=== PATIENT | female | born 1980 | race American Indian/Alaskan Native ===

== ENCOUNTER 2016-06-03 06:02 | Emergency (ER) | payer SELFPAY ==
[2016-06-03] MEDS ORDERED: TORADOL IM ONE (08:32)
--- NOTE | 2016-06-03 08:39 | Emergency Department Report ---
HPI - General Chief Complaint: Dental/Oral Time Seen by Provider: 06/03/16 08:22 - HPI HPI: Patient is a 35-year-old female presents to the ED complaining of right sided lower dental pain 2 days. Patient states last dental visit was 6 months ago. Patient takes no recent dental work. Patient states pain as throbbing/aching type pain at the right bottom jaw area. Patient denies fevers/chills/nausea/vomiting/abdominal pain/trauma/gum or mouth bleeding ED Past Medical Hx - Medications Home Medications: Home Medications Medication Instructions Recorded Confirmed Last Taken Type Acetaminophen/Codeine 1 tab PO Q6H PRN #12 tab 06/03/16 Unknown Rx [Acetaminophen-Codeine #3 TAB] Amoxicillin [Trimox CAP] 500 mg PO Q8H 10 Days 06/03/16 Unknown Rx Ibuprofen [Motrin] 800 mg PO Q8HR PRN #30 tablet 06/03/16 Unknown Rx ED Review of Systems ROS: Stated complaint: TOOTHACHE Other details as noted in HPI Constitutional: denies: chills, fever Eyes: denies: eye pain, eye discharge, vision change ENT: dental pain. denies: ear pain, throat pain, hearing loss, epistaxis, congestion Respiratory: denies: cough, shortness of breath, wheezing Cardiovascular: denies: chest pain, palpitations Endocrine: no symptoms reported Gastrointestinal: denies: abdominal pain, nausea, vomiting, diarrhea, constipation, hematochezia Genitourinary: denies: urgency, dysuria, discharge Musculoskeletal: denies: back pain, joint swelling, arthralgia Skin: denies: rash, lesions Neurological: denies: headache, weakness, paresthesias Psychiatric: denies: anxiety, depression Hematological/Lymphatic: denies: easy bleeding, easy bruising, swollen glands Physical Exam - Physical Exam Vital Signs: Vital Signs 06/03/16 06:08 Temperature 98.6 F Pulse Rate 77 Respiratory 18 Rate Blood Pressure 131/90 O2 Sat by Pulse 100 Oximetry General: Alert and oriented 3. In no distress. Physical Exam: GENERAL: Alert and oriented x3, no apparent distress, Normal Gait, atraumatic. HEAD: Head is normocephalic and a-traumatic. EYES: Extra ocular muscles are intact. Pupils are equal, round, and reactive to light and accommodation. EARS: symetrical, atraumatic, non tender, ear canal clear and moderate cerumen, tympanic membrance non inflamed. gross auditory nml bilaterally. NOSE: Nose symetrical, Nontender,Nares appeared normal. MOUTH:Mouth is well hydrated and without lesions. Tonsils nonerythematous or swollen, Uvula midline, Tongue not elevated. Mucous membranes are moist. Posterior pharynx clear, no exudate or lesions. Patent airways. Gingival enlargement and tenderness at teeth #28, #29. No gum bleeding/dc. NECK: Supple. Non edematous, No carotid bruits. No lymphadenopathy or thyromegaly. LUNGS: Symetrical with respiration, No wheezing, no rales or crackles, CTAB. HEART: S1, S2 present, regular rate and rhythm without murmur, no rubs, no gallops. ABDOMEN: No organomegaly was noted,Positive bowel sounds, soft, and non- distended. . Nontender to palpation on all Quadrants, NO CVA tenderness. EXTREMITIES/MUSCULOSKELETAL: No cyanosis, clubbing, rash, lesions or edema. Full ROM bilaterally. UE/LE Pulses 2+ bilaterally. LE and UE 5+ strength bilaterally NEUROLOGIC: No focal Deficit, Cranial nerves II through XII are grossly intact. No loss of sensation, No facial droop, SKIN: Warm and dry, No lesions, No ulceration or induration present. ED Course Vital Signs 06/03/16 06:08 Temperature 98.6 F Pulse Rate 77 Respiratory 18 Rate Blood Pressure 131/90 O2 Sat by Pulse 100 Oximetry ED Medical Decision Making - Medical Decision Making 35-year-old female presents with dental abscess. Vital signs normal. Patient is in no distress, alert and oriented 3. ED course: Patient received 60 mg IM Toradol. She'll follow up with dentist. Discussed home antibiotic therapy and gum infection. Discussed pain management with Motrin and Tylenol 3. Discussed follow-up with primary care physician as wall. Discussed with the medication as prescribed. Patient verbally understands and will comply for follow-up. Critical care attestation.: If time is entered above; I have spent that time in minutes in the direct care of this critically ill patient, excluding procedure time. ED Disposition Clinical Impression: Dental abscess, Pain, dental Disposition: DISCHARGED TO HOME OR SELFCARE Is pt being admited?: No Does the pt Need Aspirin: No Condition: Stable Instructions: Dental Abscess (ED), Toothache (ED) Prescriptions: Acetaminophen/Codeine [Acetaminophen-Codeine #3 TAB] 1 tab PO Q6H PRN #12 tab PRN Reason: Pain Ibuprofen [Motrin] 800 mg PO Q8HR PRN #30 tablet PRN Reason: Pain Amoxicillin [Trimox CAP] 500 mg PO Q8H 10 Days Referrals: PRIMARY CARE, [Primary Care Provider] - 3-5 Days [facility] [Outside] - 3-5 Days [facility] [Outside] - 3-5 Days [facility] [Outside] - 3-5 Days Forms: Work/School Release Form(ED) Time of Disposition: 09:07
[2016-06-03 09:38] VITALS: BP 132/75
== END 2016-06-03 09:38 | disposition home or self-care (01) ==
LOC: ED 06:02
DX: K04.7 Periapical abscess without sinus (principal); Z88.2 Allergy status to sulfonamides
CPT/HCPCS: 96372; 99282; J1885

== ENCOUNTER 2016-09-28 22:30 | Emergency (ER) | payer SELFPAY | END 2016-09-29 03:39 | disposition left against medical advice (07) | LOC: ED 22:30 | DX: K08.89 Other specified disorders of teeth and supporting structures (principal); Z53.21 Procedure and treatment not carried out due to patient leaving prior to being seen by health care provider ==

== ENCOUNTER 2016-09-30 08:46 | Emergency (ER) | payer SELFPAY ==
[2016-09-30 11:59] VITALS: BP 122/74
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
== END 2016-09-30 11:58 | disposition home or self-care (01) ==
LOC: ED 08:46
DX: K05.10 Chronic gingivitis, plaque induced (principal); I25.2 Old myocardial infarction; G43.909 Migraine, unspecified, not intractable, without status migrainosus
CPT/HCPCS: 99282

== ENCOUNTER 2018-01-02 07:39 | Emergency (ER) | payer BC, OTHER ==
[2018-01-02 07:51] VITALS: BP 111/70
[2018-01-02] MEDS ORDERED: MOTRIN PO ONE (08:14)
[2018-01-02] MEDS ORDERED: LIDOCAINE VISCOUS 2% PO ONE (08:14)
[2018-01-02] MEDS ORDERED: TYLENOL PO ONE (08:14)
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
== END 2018-01-02 09:10 | disposition home or self-care (01) ==
LOC: ED 07:39
DX: K08.89 Other specified disorders of teeth and supporting structures (principal); I25.2 Old myocardial infarction; G43.909 Migraine, unspecified, not intractable, without status migrainosus; Z88.2 Allergy status to sulfonamides
CPT/HCPCS: 99282